=== PATIENT | female | born 1960 | race Two or more races ===

== ENCOUNTER 2024-06-08 16:40 | Emergency (ER) | payer MEDICAID, SELFPAY ==
[2024-06-08 17:16] VITALS: BP 131/81; PULSE 86; RESP 18; TEMP 36.9; O2SAT 99; BMI 35.1
--- NOTE | 2024-06-08 17:26 | XR_ITS ---
Examination: PA lateral chest 2 views Technique: Upright PA lateral chest 2 views Exam date and time: June 08, 2024 1736 hrs. Comparison September 26, 2022 Indications: Chest pain radiating to the right arm beginning 3 days ago. Findings: Mild prominence left ventricle Mild vascular congestion Benign lobulation right hemidiaphragm. No lobar pneumonia or pulmonary edema Impression: Mild prominence left ventricle Mild vascular congestion
--- NOTE | 2024-06-08 17:27 | EKG_ITS ---
[facility] Test Date: 2024-06-08 Pat Name: PERLA REAVES Department: Room: - Gender: Female Medical Transcription Supervisor: : [id number] Requested By: Brayan Gillette Order Number: [id number] Reading MD: Brayan Gillette Measurements Intervals [place] Rate: 70 P: 52 MD: 169 QRS: 0 QRSD: 114 T: 30 QT: 395 QTc: 426 Interpretive Statements SINUS RHYTHM INCOMPLETE RIGHT BUNDLE BRANCH BLOCK [90+ ms QRS DURATION, TERMINAL R IN V1/V2, 40+ ms S IN I/aVL/V4/V5/V6] Compared to ECG 09/26/2022 10:57:34 Myocardial infarct finding no longer present /store/S0/[id number]/ecg/[id number].pdf
--- NOTE | 2024-06-08 17:28 | PD.EDRME ---
Rapid Medical Screening Exam E Arrival date/time: 06/08/24 16:40 64-year-old female with no known medical history presents to the emergency room with a chief complaint of chest discomfort, right arm tingling, and pain x 3 days. I have greeted and performed a focused initial assessment of this patient. A comprehensive ED assessment and evaluation of the patient, analysis of all test results, and completion of the medical decision making process will be conducted by additional ED providers. Chief Complaint: Neck Pain/Injury Vital signs: Vital Signs Temperature 98.5 F 06/08/24 17:16 Pulse Rate 86 06/08/24 17:16 Respiratory Rate 18 06/08/24 17:16 Blood Pressure 131/81 H 06/08/24 17:16 Pulse Oximetry (%) 99 06/08/24 17:16 Oxygen Delivery Method Room Air 06/08/24 17:16 Vital signs reviewed by provider: Yes
[2024-06-08 18:40] LABS: B-Type Natriuretic Peptide < 20 pg/mL (0-100)
[2024-06-08 18:48] LABS: Basophils # (Auto) 0.1 Thou/mm3 (0.0-0.2); Basophils % (Auto) 1 % (0-2.5); Eosinophils # (Auto) 0.3 Thou/mm3 (0.0-0.5); Eosinophils % (Auto) 3 % (0-10); Hematocrit 33.3 % (36.0-46.0); Hemoglobin 9.9 g/dL (12.0-16.0); Immature Granulocytes % (Auto) 0 % (0-0); Immature Granulocytes Auto 0.03 Thou/mm3 (0.00-0.00); Lymphocytes # (Auto) 3.2 Thou/mm3 (1.0-4.8); Lymphocytes % (Auto) 36 % (10-50); Mean Corpuscular HGB Conc 29.7 g/dl (31.0-37.0); Mean Corpuscular Hemoglobin 21.7 pg (25.0-35.0); Mean Corpuscular Volume 73 fL (80-100); Monocytes # (Auto) 0.6 Thou/mm3 (0.0-0.8); Monocytes % (Auto) 7 % (0-12); Neutrophils # (Auto) 4.8 Thou/mm3 (1.8-7.7); Neutrophils % (Auto) 54 % (37-80); Nucleated Red Blood Cell % 0 /100 WBC (0); Platelet Count 444 Thou/mm3 (140-440); RDW Standard Deviation 51.8 fL (36.4-46.3); Red Blood Count 4.56 Miln/mm3 (4.00-5.20)
[2024-06-08 18:53] LABS: Alanine Aminotransferase 13 U/L (10-49); Albumin, Serum 4.5 gm/dL (3.4-4.8); Albumin/Globulin Ratio 1.8 (1.2-2.2); Alkaline Phosphatase 155 U/L (46-116); Anion Gap 10 (7-16); Aspartate Amino Transferase 16 U/L (0-34); BUN/Creatinine Ratio 24 Ratio (12-20); Bilirubin,Total 0.2 mg/dL (0.3-1.2); Blood Urea Nitrogen 22 mg/dL (9-23); Calcium 9.2 mg/dL (8.3-10.6); Calcium (Corrected) 9.2 mg/dL (8.5-10.1); Carbon Dioxide 21.8 mMol/L (20.0-31.0); Chloride 107 mMol/L (98-107); Creatinine (Component) 0.9 mg/dL (0.6-1.3); Estimated Creatinine Clearance 82.6 mL/min (>60); Globulin 2.5 gm/dL (2.3-3.5); Glucose 114 mg/dL (74-106); Magnesium 2.1 mg/dL (1.6-2.6); Osmolality,Calculated 281 (275-295); Potassium 3.7 mMol/L (3.4-5.1); Sodium 139 mMol/L (136-145); Troponin I < 0.020 ng/mL (0.0-0.045); eGFR > 60 See Note
[2024-06-08 19:37] VITALS: BP 175/70; PULSE 75; RESP 18; TEMP 36.7; O2SAT 97
--- NOTE | 2024-06-08 21:03 | PD.EDNECK ---
ED Neck Injury Pain RME/HPI General Chief Complaint: Neck Pain/Injury Stated Complaint: Pain in the neck that radiates down right arm Time Seen by Provider: 06/08/24 17:29 Arrival date/time: 06/08/24 16:40 RME / HPI RME / HPI Narrative: 06/08/24 16:40 64-year-old female with no known medical history presents to the emergency room with a chief complaint of chest discomfort, right arm tingling, and pain x 3 days. I have greeted and performed a focused initial assessment of this patient. A comprehensive ED assessment and evaluation of the patient, analysis of all test results, and completion of the medical decision making process will be conducted by additional ED providers. Dr. Peralta?s Main ED Evaluation: 64yo female with a history of HTN, anxiety presents to the ED for a chief complaint of right neck pain that radiates down her arm x 3 days. She denies any numbness or tingling. Her pain does not worsen with movement, but does on palpation. She states she started having mid chest pain today and was concerned, so she came in for evaluation. She denies any shortness of breath or any other associated symptoms. Related Data Home Medications ?Medication ?Instructions ?Recorded ?Confirmed lisinopril 10 mg tablet 10 mg PO QDAY #0 tabs 05/06/15 10/30/18 lorazepam 1 mg tablet 1 mg PO Q4H PRN Anxiety 09/17/17 10/30/18 Previous Rx's ?Medication ?Instructions ?Recorded albuterol sulfate 90 mcg/actuation 2 puff inhalation QID #18 grams 06/19/19 aerosol inhaler ibuprofen 600 mg tablet 600 mg PO Q6H PRN pain #30 tabs 09/26/22 ibuprofen 600 mg tablet 600 mg PO Q6H PRN pain #20 tabs 06/08/24 Allergies Allergy/AdvReac Type Severity Reaction Status Date / Time hydrocodone (From Vicodin) Allergy SEVERE Verified 06/19/19 12:23 ITCHING, BLURRY VISION Review of Systems Review of Systems Systems Reviewed: All systems reviewed, normal except as documented Past Medical History Past Medical History NEUROLOGIC: Negative Neurological Disorders, Seizures or Amyotrophic Lateral Sclerosis (ALS/Amber Gehrig's) CARDIAC: Positive Cardiac Disorders, Heart Murmur (CONGENITAL. ASYMPTOMATIC) and Hypertension (TAKES MED); Negative Congestive Heart Failure RESPIRATORY: Negative Chronic Obstructive Pulmonary Disease (COPD) GASTROINTESTINAL: Negative Gastrointestinal Disorders, Hepatitis or Colorectal Cancer GENITOURINARY: Negative Genitourinary Disorders or Renal Disease REPRODUCTIVE: Positive Previous Pregnancies (X4); Negative Breast Cancer, Endometriosis, Pelvic Inflammatory Disease or Uterine Prolapse MUSCULOSKELETAL: Positive Musculoskeletal Disorders, Arthritis, Osteoporosis, Carpal Tunnel Syndrome (MEJIA) and Fractures ( A CHILD-LEFT ARM); Negative Bone Cancer ENDOCRINE: Negative Endocrine Disorders, Diabetes Mellitus Type 1 or Diabetes Mellitus Type 2 HEMATOLOGIC: Negative Blood Disorders PSYCHO/SOCIAL: Positive Depression and Anxiety OTHER HISTORY: Positive Chicken Pox and Measles; Negative Autoimmune Disease, Blood Transfusions, Blood Transfusion Reaction, Anesthesia Reactions, Organ Transplant, Chemotherapy, Radiation Therapy, Hyperbaric Therapy, MRSA, VRSA, Vancomycin-Resistant Enterococci, Breast Cancer, Cervical Cancer, Colorectal Cancer, Lung Cancer or Ovarian Cancer Family History FAMILY HISTORY: Positive Family Psychiatric Problems (MOTHER), Family Cardiac Disorders (MOTHER) and Family Surgery (MOTHER,BROTHER); Negative Family Respiratory Disorders, Family Gastrointestinal Problems, Family Cancer or Family Anesthesia Reaction Surgical History SURGICAL: Positive Abdominal Surgery, Gastric Bypass Surgery, Joint Replacement (LEFT KNEE 08/2017), Hysterectomy (MEJIA MOISE), Tubal Ligation and Section (X1); Negative Cardiac Surgery, Endocrine Surgery, Ear Surgery, Nephrectomy, Neurologic Surgery, Brain Shunt or Organ Transplant Social History SMOKING STATUS: Never smoker SUBSTANCE USE: does not use ED Exam Narrative Physical exam: GENERAL APPEARANCE: alert and oriented x 4, well-developed, well-nourished, tenderness over the left trapezius muscle, no acute distress VITALS: All vitals were reviewed and the pulse ox is 97% on room air, which is normal according to my interpretation. HEENT: Normocephalic, atraumatic; pupils equal, round, reactive to light; EOMI; mucous membranes pink, moist; oropharynx clear NECK: Supple LUNGS: CTABL; no wheezes, no rales, no rhonchi HEART: Regular rate, regular rhythm; normal S1, S2; no murmurs ABDOMEN: non distended; normal BS; soft, no tenderness, no guarding, no rebound; no masses, no organomegaly, no hernia BACK: no CVA tenderness EXTREMITIES: atraumatic; no edema NEUROLOGIC: awake; alert and oriented x4; cranial nerves II-XII grossly intact; no focal sensory or motor deficits PSYCHIATRIC: appropriate mood and affect SKIN: warm, dry, normal color; no rashes Course Course Course Narrative: CXR is ordered for determining the etiology of chest pain. Quality Measures none Orders Category Date Time Status EKG (ED ONLY) *Do not use* NOW Care 06/08/24 17:27 Completed EKG (ED Only) Stat Exams 06/08/24 17:27 Ordered XR chest 2V Stat Exams 06/08/24 17:26 Completed B-Type Natriuretic Peptide Stat Lab 06/08/24 18:03 Completed CBC Stat Lab 06/08/24 18:03 Completed Comprehensive Metabolic Panel Stat Lab 06/08/24 18:03 Completed Magnesium Stat Lab 06/08/24 18:03 Completed Troponin I Stat Lab 06/08/24 18:03 Completed Vital Signs Vital signs: Vital Signs Temperature 98.5 F 06/08/24 17:16 Pulse Rate 86 06/08/24 17:16 Respiratory Rate 18 06/08/24 17:16 Blood Pressure 131/81 H 06/08/24 17:16 Pulse Oximetry (%) 99 06/08/24 17:16 Oxygen Delivery Method Room Air 06/08/24 17:16 Neck Pain MDM Narrative MDM Narrative:: Scribe Attestation: 06/08/24 Lena Bonilla am scribing for and in the presence of Dr. Peralta. Patient data External records reviewed:: [facility] previous records (Per chart review, patient was seen here on 09/26/22 for anxiety.) Clinical information provided by:: patient Social determinants that could affect healthcare access:: mental health Patient has the following chronic illnesses:: HTN, anxiety How is presenting disease/condition affected by chronic disease/condition?: uneffected by Evaluation data The following diagnostics were reviewed and interpreted by me:: lab results and radiology exam(s) Lab and/or radiology exams considered but not ordered:: none Interpretation Summary: WBC count is normal, HnH is at baseline, CMP is normal, BNP is normal, troponin is normal, according to my interpretation. ------- [facility] Report Signed Patient: PERLA REAVES. Record#: [id number] Birthdate: 1960 Age/Sex: 64 / F Location: [facility] Attending Dr: Ordering Physician: Brayan Crabtree Date of Service: 06/08/24 Procedure(s): XR chest 2V Accession Number(s): [id number] cc: Brayan Crabtree; Lamine Lenz MD~ Examination: PA lateral chest 2 views Technique: Upright PA lateral chest 2 views Exam date and time: June 08, 2024 1736 hrs. Comparison September 26, 2022 Indications: Chest pain radiating to the right arm beginning 3 days ago. Findings: Mild prominence left ventricle Mild vascular congestion Benign lobulation right hemidiaphragm. No lobar pneumonia or pulmonary edema Impression: Mild prominence left ventricle Mild vascular congestion Dictated By: Lamine Lenz MD Signed By: <Electronically signed by Lamine Lenz MD in OV> 06/08/24 1747 Medications / Prescriptions Medications or Prescriptions considered but not ordered:: none Medication administrations:: see above Consultations Consultation(s) initiated? (list below): No Diagnosis Neck Differential Diagnosis: other (cervical radiculopathy, shingles, muscle strain, fx) Most likely diagnosis given after review of the tests above:: see below Admission Indicated Admission indicated?: not indicated Admission Request Was there a request for admission?: No Disposition Plan Disposition Plan: Discharge Discharge Attestation Discharge Attestation: The patient and all family members were given an opportunity to ask questions and understood the discharge instructions. Discharge instructions specifically effects, indications for sooner follow up or return to the emergency department, and the expected course of current diagnosis. Patient condition: Stable Discharge Plan Plan Patient Disposition: HOME (Self Care) Prescriptions/Referrals Prescriptions/Med Rec: New ibuprofen 600 mg tablet 600 mg PO Q6H PRN (Reason: pain) Qty: 20 0RF No Action lisinopril 10 MG tablet 10 mg PO QDAY Qty: 0 lorazepam 1 mg Tablet 1 mg PO Q4H PRN (Reason: Anxiety) albuterol sulfate 90 mcg/actuation HFA aerosol inhaler 2 puff INH QID Qty: 18 0RF ibuprofen 600 mg tablet 600 mg PO Q6H PRN (Reason: pain) Qty: 30 0RF Referrals: Haroldo Green MD [Primary Care Provider] - In 1 week Problem List Clinical Impression: Muscle strain Patient/Caregiver Discharge Instructions Discharge Activity: activity as tolerated Education Materials: ED Myalgias Additional Instructions: Return to the emergency department for any worsening or any further medical problems Otherwise you should follow-up with your primary care doctor within the next several days Print Language: Danish Stand Alone Forms: [facility] Info., Patient Portal Info Letter
== END 2024-06-08 22:20 | disposition home or self-care (01) ==
PROVIDERS: Nurse Practitioner Family; Emergency Provider Emergency Medicine; PCP Family Medicine
DX: S29.011A Strain of muscle and tendon of front wall of thorax, initial encounter (principal); I10 Essential (primary) hypertension; R09.89 Other specified symptoms and signs involving the circulatory and respiratory systems; F41.9 Anxiety disorder, unspecified; Z79.899 Other long term (current) drug therapy; X58.XXXA Exposure to other specified factors, initial encounter
CPT/HCPCS: 36415; 71046; 80053; 83735; 83880; 84484; 85025; 93005; 99283

== ENCOUNTER 2024-12-14 08:53 | Outpatient (AMB) | payer MEDICAID, SELFPAY ==
--- NOTE | 2024-12-14 08:58 | ORTHONT_ITS ---
Vital signs 12/14/24 09:06 Height 1.63 m Height Method Measured Weight 96.332 kg Weight Measurement Method Standing Scale BMI 36.4 BP 166/93 H Blood Pressure Source Automatic Cuff Blood Pressure Location Left Upper Arm Position Sitting Respiration 18 Pulse 86 Pulse Source Monitor Temp 97.6 F Temp Source Temporal Artery Scan Pulse Oximetry (%) 91 L Oxygen Delivery Method Room Air Med/Allergies Allergies & Medications Allergies hydrocodone (From Vicodin) Allergy (Verified 12/14/24 09:07) SEVERE ITCHING, BLURRY VISION Medication Reconciliation lisinopril 10 mg tablet 10 mg PO QDAY #0 tabs 05/06/15 [History Confirmed 12/14/24] lorazepam 1 mg tablet 1 mg PO Q4H PRN Anxiety 09/17/17 [History Confirmed 12/14/24] albuterol sulfate 90 mcg/actuation aerosol inhaler 2 puff inhalation QID #18 grams 06/19/19 [Rx Confirmed 12/14/24] ibuprofen 600 mg tablet 600 mg PO Q6H PRN pain #30 tabs 09/26/22 [Rx Confirmed 12/14/24] ibuprofen 600 mg tablet 600 mg PO Q6H PRN pain #20 tabs 06/08/24 [Rx Confirmed 12/14/24] Exam Exam Breathing is nonlabored. Patient has a normal mood and affect. Bilateral extremities were evaluated and demonstrates sensation intact to light touch. Palpable pedal pulses are present. No significant edema is present. Bilateral hips were examined. The patient has no pain with log roll of the hips. Internal rotation to 30 degrees and external rotation to 30 degrees is painless. Negative FADIR. Left knee was examined today. Left knee incision is clean dry and intact The right knee was also examined. The right knee is in varus alignment. Range of motion from 0-115 degrees. Knee is stable to varus and valgus as well as AP translation with <5mm. Patient has a negative McMurrays. There is no pain with patellofemoral compression and no crepitus noted. The knee is tender to palpation medially. Assessment and Plan Problem List (1) Pain in right knee: Status: Acute Plan: Patient is a pleasant 64-year-old female with right knee pain and right knee arthritis. We discussed different treatment options. She has [id number] arthritis and has had over 10 injections and anti-inflammatories in the past. We will get x-rays and discusse different treatment options. We discussed total knee replacement in great detail given the old x-rays show [id number] arthritis. Office Procedures GNS Level of Care Nursing/Assessment Patient Status: Initial/New Patient Nursing Assessment/Reassesment: Medication Reconciliation, Orthostatic Vitals and Update PMH in EMR Coordination of Care: Complex Care and Chronic Disease 1-5, Education Complex Pt/Fam, Consent,records obtained, informed consent, Lab and Imaging orders, Results/Orders obtained and Staff clarify orders New Patient Charge New Patient Point Assignment: 1104 New Patient Point Charge: REGISTERED NURSE STEP DOWN Level 3 (4851-0920) MA Intake Visit Data Collection New Patient or Established: New Patient (never been to [facility]) Reason for Visit:: RIGHT KNEE OSTEOARTHRITIS Seen by Clinical Staff ONLY (RN/MA): No Chainstitch Seat Joiner Required: No PCP or OBGYN visit in last 3 months: Yes Hx Now: No Do You Feel Safe at Home: Yes Authorities Contacted: N/A Questionairres Past Medical History Past Medical History Have you ever been diagnosed with any of the following: Neurological Problems Seizures: No Amyotrophic Lateral Sclerosis (ALS/Amber Gehrig's): No Cardiology Problems Heart Murmur: Yes (CONGENITAL. ASYMPTOMATIC) Congestive Heart Failure: No Hypertension: Yes (TAKES MED) Respiratory Problems Chronic Obstructive Pulmonary Disease (COPD): No Smoking: No Smoking Cessation Counseling: No Smoking Exposure: No Stomache/Intestinal Problems Hepatitis: No Colorectal Cancer: No Genital/Urinary Problems Renal Disease: No Reproductive Problems Breast Cancer: No Endometriosis: No Pelvic Inflammatory Disease: No Previous Pregnancies: Yes (X4) Uterine Prolapse: No Musculoskeletal Problems Bone Cancer: No Arthritis: Yes Osteoporosis: Yes Carpal Tunnel Syndrome: Yes (MEJIA) Fractures: Yes ( A CHILD-LEFT ARM) Endocrine Problems Diabetes Mellitus Type 1: No Diabetes Mellitus Type 2: No Psychologic Problems Depression: Yes Anxiety: Yes Other Problems Blood Transfusions: No Blood Transfusion Reaction: No Anesthesia Reactions: No Organ Transplant: No Chemotherapy: No Radiation Therapy: No Hyperbaric Therapy: No MRSA: No VRSA: No Vancomycin-Resistant Enterococci: No Chicken Pox: Yes Measles: Yes Cervical Cancer: No Lung Cancer: No Ovarian Cancer: No Surgical History Hysterectomy: Yes (MEJIA MOISE) Subjective Visit Visit for: new patient and knee Immunization / Flu Flu Vaccine in the Last 12 Months: Yes Flu Vaccine Exclusion Criteria: Already Received History of Present Illness Chief complaint: RIGHT KNEE OSTEOARTHRITIS Date of injury / onset of symptoms: 5 YEARS AGO Patient is a pleasant 64-year-old female with over 6 years of right knee pain. She had a left total knee replacement 6 years ago. Her right knee has been [id number] since the x-rays in 2019. She has no current x-rays. She has had over 10 injections in her right knee and has tried ibuprofen. She has lost a significant amount of weight as well Personal History Occupation: RETIRED Red flag PMH: none BMI Counceling provided: Yes Pain Pain level (0-10): 7 Pain location: anterior Pain quality: sharp Pain timing: night, increases with activity and stairs Associated signs & symptoms: numbness, weakness and stiffness Ambulatory data Ambulatory device: none Treatments Number of previous injections: 10 Improvement with previous injections: Yes Number of Physical Therapy sessions: 0 Improvement with PT: No Improvement with NSAIDS: yes Review of Systems Review of Systems: All systems negative unless otherwise noted in HPI.
[2024-12-14 09:06] VITALS: BP 166/93; PULSE 86; RESP 18; TEMP 36.4; O2SAT 91; BMI 36.4
--- NOTE | 2024-12-14 09:16 | XR_ITS ---
Examination: Bilateral knees 2 views Right lateral knee left lateral knee 2 views Bilateral axial knees single view TECHNIQUE: Bilateral AP knees standing single view, bilateral PA knees standing single view flexion Standing right lateral knee left lateral knee 2 views Bilateral axial knees single view total 5 views Date and time: December 14, 2024 0931 hours INDICATIONS: Right knee pain 5 years FINDINGS: Moderate osteopenia Severe narrowing, [id number] medial joint space right knee Moderate to advanced osteoarthritis right patellofemoral joint Total left knee arthroplasty with satisfactory alignment IMPRESSION: Severe narrowing, [id number], medial joint space right knee
== END 2024-12-14 09:23 | disposition home or self-care (01) ==
LOC: HODSRG 08:53
PROVIDERS: PCP Physician Assistant; Referring Provider Physician Assistant; Supervising Provider Orthopaedic Surgery Adult Reconstructive Orthopaedic Surgery; Visit Provider Orthopaedic Surgery Adult Reconstructive Orthopaedic Surgery
DX: M25.561 Pain in right knee (principal); M17.11 Unilateral primary osteoarthritis, right knee; I10 Essential (primary) hypertension
CPT/HCPCS: 73564; 99203; G0463

== ENCOUNTER 2025-01-11 08:30 | Outpatient (AMB) | payer MEDICARE, MEDICAID, SELFPAY ==
--- NOTE | 2025-01-11 08:46 | ORTHONT_ITS ---
Vital signs 01/11/25 08:48 Height 1.63 m Height Method Measured Weight 97.211 kg Weight Measurement Method Standing Scale BMI 36.6 BP 129/80 Blood Pressure Source Automatic Cuff Blood Pressure Location Left Upper Arm Position Sitting Respiration 18 Pulse 72 Pulse Source Monitor Temp 98.2 F Temp Source Temporal Artery Scan Pulse Oximetry (%) 90 L Oxygen Delivery Method Room Air Med/Allergies Allergies & Medications Allergies hydrocodone (From Vicodin) Allergy (Verified 01/11/25 08:49) SEVERE ITCHING, BLURRY VISION Medication Reconciliation lisinopril 10 mg tablet 10 mg PO QDAY #0 tabs 05/06/15 [History Confirmed 01/11/25] lorazepam 1 mg tablet 1 mg PO Q4H PRN Anxiety 09/17/17 [History Confirmed 01/11/25] albuterol sulfate 90 mcg/actuation aerosol inhaler 2 puff inhalation QID #18 grams 06/19/19 [Rx Confirmed 01/11/25] ibuprofen 600 mg tablet 600 mg PO Q6H PRN pain #30 tabs 09/26/22 [Rx Confirmed 01/11/25] ibuprofen 600 mg tablet 600 mg PO Q6H PRN pain #20 tabs 06/08/24 [Rx Confirmed 01/11/25] Exam Exam Breathing is nonlabored. Patient has a normal mood and affect. Bilateral extremities were evaluated and demonstrates sensation intact to light touch. Palpable pedal pulses are present. No significant edema is present. Bilateral hips were examined. The patient has no pain with log roll of the hips. Internal rotation to 30 degrees and external rotation to 30 degrees is painless. Negative FADIR. Left knee was examined today. Left knee incision is clean dry and intact The right knee was also examined. The right knee is in varus alignment. Range of motion from 0-115 degrees. Knee is stable to varus and valgus as well as AP translation with <5mm. Patient has a negative McMurrays. There is no pain with patellofemoral compression and no crepitus noted. The knee is tender to palpation medially. Right knee x-rays demonstrates significant joint space narrowing medially with complete obliteration of the medial joint space Assessment and Plan Problem List (1) Pain in right knee: Status: Acute Plan: Patient is a pleasant 64-year-old female with right knee pain and right knee arthritis. We discussed different treatment options. She has yjen-jk-[id number] arthritis and has had over 10 injections and anti-inflammatories in the past. The pain is affecting her quality life and happiness we discussed total knee replacement is a reasonable option The nature and purpose of the total knee replacement, alternative method(s) of treatment, the material risks involved, and the possibility of complications were fully explained to the patient. The patient does NOT have any of the following contraindications to TKA: - Active infection of the knee joint, OR - Active systemic bacteremia, OR - Active skin infection or open wound at surgical site, OR - Neuropathic arthritis, OR - Severe, rapidly progressive neurological disease, OR - Severe medical condition that makes risks of surgery outweigh the potential benefit The patient was told the most common risks and complications associated with a total knee replacement include, but are not limited to: blood clots in the leg, fatal pulmonary embolism, dislocation of the prosthesis, intraoperative and postoperative fractures of the femur or tibia, infection, failure of the prosthesis or grafting materials, complications from anesthesia, reactions to blood transfusions, postoperative leg length inequality, instability of the knee replacement, nerve damage or injury, vascular injury, delayed wound healing, infection, other injury or even . In addition, there are risks associated with anesthesia given during this operation. Also, the patient was told that after undergoing a total knee replacement there may still be persistent pain or disability. The patient was informed that the success of this operation in part depends upon the mechanical devices which are going to be implanted and that these devices can fail or malfunction, and may need to be repaired or replaced and there are no guarantees as to the longevity of this device or its parts and that it or its parts could fail prematurely. The patient was also notified that during the course of surgery, there may be a need to use bone graft from donors, and that any bone graft used will be carefully screened for communicable diseases, including AIDS, hepatitis, Gerardo-Creutzfeldt, or other diseases, but despite the screening procedures, there is a small chance that they could contract one of these diseases. Finally, the patient was asked to follow completely and fully with all advice and recommended treatments, and that recovery and ultimate outcome are affected by their compliance with recommended treatment. We discussed the risks, benefits and treatment alternatives, and the patient is interested in proceeding with surgery. We will try to set this up as expeditiously as possible. Office Procedures GNS Level of Care Nursing/Assessment Patient Status: Established Patient Nursing Assessment/Reassesment: Medication Reconciliation, Orthostatic Vitals, Update PMH in EMR and Vital Signs Coordination of Care: Complex Care and Chronic Disease 1-5, Education Complex Pt/Fam, Consent,records obtained, informed consent, Results/Orders obtained and Staff clarify orders Established Patient Charge Established Patient Point Assignment: 105 Established Patient Point Charge: EP Level 3 (80-115) MA Intake Visit Data Collection New Patient or Established: Established Patient (seen at [facility] within 3 years) Reason for Visit:: 3 WEEK F/U IMAGING RESULTS Seen by Clinical Staff ONLY (RN/MA): No Nuclear Auxiliary Operator Required: No PCP or OBGYN visit in last 3 months: Yes Hx Now: No Do You Feel Safe at Home: Yes Authorities Contacted: N/A Questionairres Past Medical History Past Medical History Have you ever been diagnosed with any of the following: Neurological Problems Seizures: No Amyotrophic Lateral Sclerosis (ALS/Amber Gehrig's): No Cardiology Problems Heart Murmur: Yes (CONGENITAL. ASYMPTOMATIC) Congestive Heart Failure: No Hypertension: Yes (TAKES MED) Respiratory Problems Chronic Obstructive Pulmonary Disease (COPD): No Smoking: No Smoking Cessation Counseling: No Smoking Exposure: No Stomache/Intestinal Problems Hepatitis: No Colorectal Cancer: No Genital/Urinary Problems Renal Disease: No Reproductive Problems Breast Cancer: No Endometriosis: No Pelvic Inflammatory Disease: No Previous Pregnancies: Yes (X4) Uterine Prolapse: No Musculoskeletal Problems Bone Cancer: No Arthritis: Yes Osteoporosis: Yes Carpal Tunnel Syndrome: Yes (MEJIA) Fractures: Yes ( A CHILD-LEFT ARM) Endocrine Problems Diabetes Mellitus Type 1: No Diabetes Mellitus Type 2: No Psychologic Problems Depression: Yes Anxiety: Yes Other Problems Blood Transfusions: No Blood Transfusion Reaction: No Anesthesia Reactions: No Organ Transplant: No Chemotherapy: No Radiation Therapy: No Hyperbaric Therapy: No MRSA: No VRSA: No Vancomycin-Resistant Enterococci: No Chicken Pox: Yes Measles: Yes Cervical Cancer: No Lung Cancer: No Ovarian Cancer: No Surgical History Hysterectomy: Yes (MEJIA MOISE) Subjective Visit Visit for: follow up visit and knee Immunization / Flu Flu Vaccine in the Last 12 Months: Yes Flu Vaccine Exclusion Criteria: Already Received History of Present Illness Chief complaint: 3 WEEK F/U IMAGING RESULTS Date of injury / onset of symptoms: 5 YEARS AGO Patient is a pleasant 64-year-old female with over 6 years of right knee pain. She had a left total knee replacement 6 years ago. Her right knee has been [id number] since the x-rays in 2019. She has had over 10 injections in her right knee and has tried ibuprofen. She has lost a significant amount of weight as well Personal History Occupation: RETIRED Red flag PMH: none BMI Counceling provided: Yes Pain Pain level (0-10): 7 Pain location: anterior Pain quality: sharp Pain timing: night, increases with activity and stairs Associated signs & symptoms: numbness, weakness and stiffness Ambulatory data Ambulatory device: none Treatments Number of previous injections: 10 Improvement with previous injections: Yes Number of Physical Therapy sessions: 0 Improvement with PT: No Improvement with NSAIDS: yes Review of Systems Review of Systems: All systems negative unless otherwise noted in HPI.
[2025-01-11 08:48] VITALS: BP 129/80; PULSE 72; RESP 18; TEMP 36.8; O2SAT 90; BMI 36.6
== END 2025-01-11 09:04 | disposition home or self-care (01) ==
PROVIDERS: PCP Physician Assistant; Referring Provider Physician Assistant; Supervising Provider Orthopaedic Surgery Adult Reconstructive Orthopaedic Surgery; Visit Provider Orthopaedic Surgery Adult Reconstructive Orthopaedic Surgery
DX: M25.561 Pain in right knee (principal); M17.11 Unilateral primary osteoarthritis, right knee; I10 Essential (primary) hypertension; Z96.652 Presence of left artificial knee joint
CPT/HCPCS: 99213; G0463

== ENCOUNTER 2025-02-01 14:48 | Outpatient (AMB) | payer MEDICARE, MEDICAID, SELFPAY ==
--- NOTE | 2025-02-01 15:00 | PD.ORTHCLVIS ---
Vital signs 02/01/25 15:01 Height 1.63 m Height Method Stated Weight 98.231 kg Weight Measurement Method Standing Scale BMI 36.9 BP 151/78 H Blood Pressure Source Automatic Cuff Blood Pressure Location Left Upper Arm Position Sitting Respiration 20 Pulse 82 Pulse Source Monitor Temp 97.9 F Temp Source Temporal Artery Scan Pulse Oximetry (%) 90 L Oxygen Delivery Method Room Air Med/Allergies Allergies & Medications Allergies hydrocodone (From Vicodin) Allergy (Verified 02/01/25 15:00) SEVERE ITCHING, BLURRY VISION Medication Reconciliation lisinopril 10 mg tablet 10 mg PO QDAY #0 tabs 05/06/15 [History Confirmed 02/01/25] lorazepam 1 mg tablet 1 mg PO Q4H PRN Anxiety 09/17/17 [History Confirmed 02/01/25] albuterol sulfate 90 mcg/actuation aerosol inhaler 2 puff inhalation QID #18 grams 06/19/19 [Rx Confirmed 02/01/25] ibuprofen 600 mg tablet 600 mg PO Q6H PRN pain #30 tabs 09/26/22 [Rx Confirmed 02/01/25] ibuprofen 600 mg tablet 600 mg PO Q6H PRN pain #20 tabs 06/08/24 [Rx Confirmed 02/01/25] Exam Exam Breathing is nonlabored. Patient has a normal mood and affect. Bilateral extremities were evaluated and demonstrates sensation intact to light touch. Palpable pedal pulses are present. No significant edema is present. Bilateral hips were examined. The patient has no pain with log roll of the hips. Internal rotation to 30 degrees and external rotation to 30 degrees is painless. Negative FADIR. Left knee was examined today. Left knee incision is clean dry and intact The right knee was also examined. The right knee is in varus alignment. Range of motion from 0-115 degrees. Knee is stable to varus and valgus as well as AP translation with <5mm. Patient has a negative McMurrays. There is no pain with patellofemoral compression and no crepitus noted. The knee is tender to palpation medially. Right knee x-rays demonstrates significant joint space narrowing medially with complete obliteration of the medial joint space Assessment and Plan Problem List (1) Pain in right knee: Status: Acute Plan: Patient is a pleasant 64-year-old female with right knee pain and right knee arthritis. We discussed different treatment options. She has [id number]-[id number] arthritis and has had over 10 injections and anti-inflammatories in the past. The pain is affecting her quality life and happiness we discussed total knee replacement is a reasonable option The nature and purpose of the total knee replacement, alternative method(s) of treatment, the material risks involved, and the possibility of complications were fully explained to the patient. The patient does NOT have any of the following contraindications to TKA: - Active infection of the knee joint, OR - Active systemic bacteremia, OR - Active skin infection or open wound at surgical site, OR - Neuropathic arthritis, OR - Severe, rapidly progressive neurological disease, OR - Severe medical condition that makes risks of surgery outweigh the potential benefit The patient was told the most common risks and complications associated with a total knee replacement include, but are not limited to: blood clots in the leg, fatal pulmonary embolism, dislocation of the prosthesis, intraoperative and postoperative fractures of the femur or tibia, infection, failure of the prosthesis or grafting materials, complications from anesthesia, reactions to blood transfusions, postoperative leg length inequality, instability of the knee replacement, nerve damage or injury, vascular injury, delayed wound healing, infection, other injury or even . In addition, there are risks associated with anesthesia given during this operation. Also, the patient was told that after undergoing a total knee replacement there may still be persistent pain or disability. The patient was informed that the success of this operation in part depends upon the mechanical devices which are going to be implanted and that these devices can fail or malfunction, and may need to be repaired or replaced and there are no guarantees as to the longevity of this device or its parts and that it or its parts could fail prematurely. The patient was also notified that during the course of surgery, there may be a need to use bone graft from donors, and that any bone graft used will be carefully screened for communicable diseases, including AIDS, hepatitis, Gerardo-Creutzfeldt, or other diseases, but despite the screening procedures, there is a small chance that they could contract one of these diseases. Finally, the patient was asked to follow completely and fully with all advice and recommended treatments, and that recovery and ultimate outcome are affected by their compliance with recommended treatment. We discussed the risks, benefits and treatment alternatives, and the patient is interested in proceeding with surgery. We will try to set this up as expeditiously as possible. (2) Arthritis of right knee: Status: Acute Advanced Care Planning Discussion Advance care planning discussed with:: patient Office Procedures GNS Level of Care Nursing/Assessment Patient Status: Established Patient Nursing Assessment/Reassesment: Medication Reconciliation, Update PMH in EMR and Vital Signs Coordination of Care: Complex Care and Chronic Disease 1-5, Education Complex Pt/Fam, Consent,records obtained, informed consent, Results/Orders obtained and Staff clarify orders Established Patient Charge Established Patient Point Assignment: 95 Established Patient Point Charge: EP Level 3 (80-115) MA Intake Visit Data Collection New Patient or Established: Established Patient (seen at [facility] within 3 years) Reason for Visit:: PRE OP R TKA Seen by Clinical Staff ONLY (RN/MA): No Landscape Specialist Required: No PCP or OBGYN visit in last 3 months: Yes Hx Now: No Do You Feel Safe at Home: Yes Authorities Contacted: N/A Questionairres Past Medical History Past Medical History Have you ever been diagnosed with any of the following: Neurological Problems Seizures: No Amyotrophic Lateral Sclerosis (ALS/Amber Gehrig's): No Cardiology Problems Heart Murmur: Yes (CONGENITAL. ASYMPTOMATIC) Congestive Heart Failure: No Hypertension: Yes (TAKES MED) Respiratory Problems Chronic Obstructive Pulmonary Disease (COPD): No Smoking: No Smoking Cessation Counseling: No Smoking Exposure: No Stomache/Intestinal Problems Hepatitis: No Colorectal Cancer: No Genital/Urinary Problems Renal Disease: No Reproductive Problems Breast Cancer: No Endometriosis: No Pelvic Inflammatory Disease: No Previous Pregnancies: Yes (X4) Uterine Prolapse: No Musculoskeletal Problems Bone Cancer: No Arthritis: Yes Osteoporosis: Yes Carpal Tunnel Syndrome: Yes (MEJIA) Fractures: Yes ( A CHILD-LEFT ARM) Endocrine Problems Diabetes Mellitus Type 1: No Diabetes Mellitus Type 2: No Psychologic Problems Depression: Yes Anxiety: Yes Other Problems Blood Transfusions: No Blood Transfusion Reaction: No Anesthesia Reactions: No Organ Transplant: No Chemotherapy: No Radiation Therapy: No Hyperbaric Therapy: No MRSA: No VRSA: No Vancomycin-Resistant Enterococci: No Chicken Pox: Yes Measles: Yes Cervical Cancer: No Lung Cancer: No Ovarian Cancer: No Surgical History Hysterectomy: Yes (MEJIA MOISE) Subjective Visit Visit for: follow up visit and knee Immunization / Flu Flu Vaccine in the Last 12 Months: Yes Flu Vaccine Exclusion Criteria: Already Received History of Present Illness Chief complaint: 3 WEEK F/U IMAGING RESULTS Date of injury / onset of symptoms: 5 YEARS AGO Patient is a pleasant 64-year-old female with over 6 years of right knee pain. She had a left total knee replacement 6 years ago. Her right knee has been [id number] since the x-rays in 2019. She has had over 10 injections in her right knee and has tried ibuprofen. She has lost a significant amount of weight as well Personal History Occupation: RETIRED Red flag PMH: none BMI Counceling provided: Yes Pain Pain level (0-10): 7 Pain location: anterior Pain quality: sharp Pain timing: night, increases with activity and stairs Associated signs & symptoms: numbness, weakness and stiffness Ambulatory data Ambulatory device: none Treatments Number of previous injections: 10 Improvement with previous injections: Yes Number of Physical Therapy sessions: 0 Improvement with PT: No Improvement with NSAIDS: yes Review of Systems Review of Systems: All systems negative unless otherwise noted in HPI.
[2025-02-01 15:01] VITALS: BP 151/78; PULSE 82; RESP 20; TEMP 36.6; O2SAT 90; BMI 36.9
== END 2025-02-01 15:30 | disposition home or self-care (01) ==
LOC: HODSRG 14:48
PROVIDERS: PCP Physician Assistant; Referring Provider Physician Assistant; Supervising Provider Orthopaedic Surgery Adult Reconstructive Orthopaedic Surgery; Visit Provider Orthopaedic Surgery Adult Reconstructive Orthopaedic Surgery
DX: M25.561 Pain in right knee (principal); Z96.652 Presence of left artificial knee joint; M17.11 Unilateral primary osteoarthritis, right knee
CPT/HCPCS: 99213; G0463

== ENCOUNTER → 2025-02-21 | Outpatient (CLI) | payer MEDICARE, MEDICAID, SELFPAY ==
--- NOTE | 2025-02-21 14:00 | XR_ITS ---
Examination: CT right lower extremity, without contrast. 2-D sagittal reconstructions. 2-D coronal reconstructions. 3-D reconstructions. Date and time of exam: February 21, 2025, 1359 hours INDICATIONS: Diagnosis primary unilateral osteoarthritis right knee, right knee pain 5 years CTDI: vol (mGy): 17.5 DLP: (mGycm): 1101 Technique: Multiple 1.25 mm axial sections of the right lower extremity without intravenous contrast have been obtained. 2-D sagittal and coronal reconstructions have been obtained. 3-D reconstructions have been obtained. Low dose protocols were performed. One or more of the following dose reduction techniques were used; automated exposure control, adjustment of the mA and/or KV according to patient size, use of iterative reconstruction technique. Findings: Moderate osteopenia Mild to moderate narrowing right hip joint No hip fracture Severe narrowing medial joint space right knee Significant osteoarthritis lateral patellofemoral joints No fracture IMPRESSION: Severe narrowing medial joint space right knee Significant osteoarthritis lateral and patellofemoral joints right knee
== END | disposition home or self-care (01) ==
LOC: CCTX 13:40
PROVIDERS: PCP Family Medicine; Referring Provider Orthopaedic Surgery Adult Reconstructive Orthopaedic Surgery; Visit Provider Orthopaedic Surgery Adult Reconstructive Orthopaedic Surgery
DX: M17.11 Unilateral primary osteoarthritis, right knee (principal); M25.861 Other specified joint disorders, right knee
CPT/HCPCS: 73700

== ENCOUNTER 2025-02-28 07:55 | Day surgery (SDC) | payer MEDICARE, MEDICAID, SELFPAY ==
--- NOTE | 2025-02-22 06:00 | EKG_ITS ---
[facility] Test Date: 2025-02-22 Pat Name: PERLA REAVES Department: Room: - Gender: Female Rubber Belt Splicer: ALVARADO : 1960 Requested By: Tj Landa Order Number: [id number] Reading MD: Tj Landa Measurements Intervals [place] Rate: 64 P: 58 NM: 175 QRS: 10 QRSD: 101 T: 46 QT: 411 QTc: 426 Interpretive Statements SINUS RHYTHM POSSIBLE LEFT ATRIAL ENLARGEMENT [-0.1mV P WAVE IN V1/V2] INCOMPLETE RIGHT BUNDLE BRANCH BLOCK [90+ ms QRS DURATION, TERMINAL R IN V1/V2, 40+ ms S IN I/aVL/V4/V5/V6] Compared to ECG 06/08/2024 17:34:07 No significant changes /store/S0/[id number]/ecg/[id number].pdf
[2025-02-22 07:23] VITALS: BMI 36.7
[2025-02-22 08:59] LABS: Basophils # (Auto) 0.1 Thou/mm3 (0.0-0.2); Basophils % (Auto) 1 % (0-2.5); Eosinophils # (Auto) 0.4 Thou/mm3 (0.0-0.5); Eosinophils % (Auto) 6 % (0-10); Hematocrit 34.5 % (36.0-46.0); Hemoglobin 10.1 g/dL (12.0-16.0); Immature Granulocytes Auto 0.01 Thou/mm3 (0.00-0.00); Lymphocytes # (Auto) 1.9 Thou/mm3 (1.0-4.8); Lymphocytes % (Auto) 33 % (10-50); Mean Corpuscular HGB Conc 29.3 g/dl (31.0-37.0); Mean Corpuscular Hemoglobin 21.6 pg (25.0-35.0); Mean Corpuscular Volume 74 fL (80-100); Monocytes # (Auto) 0.5 Thou/mm3 (0.0-0.8); Monocytes % (Auto) 8 % (0-12); Neutrophils # (Auto) 3.0 Thou/mm3 (1.8-7.7); Neutrophils % (Auto) 52 % (37-80); Nucleated Red Blood Cell # 0.00 Thou/mm3 (0.00-0.00); Nucleated Red Blood Cell % 0 /100 WBC (0); Platelet Count 430 Thou/mm3 (140-440); RDW Standard Deviation 45.6 fL (36.4-46.3); Red Blood Count 4.67 Miln/mm3 (4.00-5.20); White Blood Count 5.8 Thou/mm3 (3.6-11.0)
[2025-02-22 09:10] LABS: INR 1.0 (0.9-1.3); Partial Thromboplastin Time 27.3 Seconds (22.0-36.0); Prothrombin Time 10.4 Seconds (9.0-12.2)
[2025-02-22 09:14] LABS: Alanine Aminotransferase 13 U/L (10-49); Albumin, Serum 4.8 gm/dL (3.4-4.8); Albumin/Globulin Ratio 1.9 (1.2-2.2); Alkaline Phosphatase 145 U/L (46-116); Anion Gap 12 (7-16); Aspartate Amino Transferase 22 U/L (0-34); BUN/Creatinine Ratio 19 Ratio (12-20); Bilirubin,Total 0.3 mg/dL (0.3-1.2); Blood Urea Nitrogen 17 mg/dL (9-23); Calcium 9.2 mg/dL (8.3-10.6); Calcium (Corrected) 9.2 mg/dL (8.5-10.1); Carbon Dioxide 24.1 mMol/L (20.0-31.0); Chloride 107 mMol/L (98-107); Creatinine (Component) 0.9 mg/dL (0.6-1.3); Estimated Creatinine Clearance 70.5 mL/min (>60); Globulin 2.5 gm/dL (2.3-3.5); Glucose 107 mg/dL (74-106); Osmolality,Calculated 286 (275-295); Potassium 4.2 mMol/L (3.4-5.1); Sodium 143 mMol/L (136-145); Total Protein 7.3 gm/dL (5.7-8.2); eGFR > 60 See Note
[2025-02-22 09:19] LABS: COVID-19 Antigen (In-House) Negative (Negative)
[2025-02-28] VITALS (17 sets, daily range): BP systolic 106–159; BP diastolic 58–84; PULSE 68–82; RESP 14–20; TEMP 36.1–37.1; O2SAT 92–97; BMI 37.0
[2025-02-28] MEDS: MELOXICAM 7.5 MG TABLET PO (08:47)
[2025-02-28] MEDS: PREGABALIN 75 MG CAPSULE PO (08:48)
[2025-02-28] MEDS: ACETAMINOPHEN 325 MG TABLET 650 MG PO (08:48)
--- NOTE | 2025-02-28 09:43 | SUR.PHASEI ---
0943: Pt. wakes to name then drifts back to sleep, vitals stable, breathing unlabored, no signs of distress, no signs of nausea, dressing to right knee CDI, no active bleed noted, bilateral dorsalis pedis pulses strong and regular, cap refill to bilateral feet less than 3 seconds, pt. able to move bilateral legs, report received from Praveen JAQUEZ and Franchesca COLBERT.
--- NOTE | 2025-02-28 11:51 | SUR.PHASEI ---
pt received from OR in recovery bay 7. pt obtunded, breathing unlabored on oxymask 10l, oral and nasal airway in place. pt dressing to right lower extremity cdi. report received from Kirstie Beavers and Dr. Landa.
--- NOTE | 2025-02-28 12:15 | XR_ITS ---
EXAMINATION: Right knee 2 views TECHNIQUE: AP right knee 2 views Date and time: February 28, 2025, 1218 hours INDICATIONS: Postop right knee replacement today. FINDINGS: Total right knee arthroplasty. Satisfactory alignment. Moderate osteopenia IMPRESSION: Total right knee arthroplasty with satisfactory alignment
--- NOTE | 2025-02-28 12:27 | PD.SUROPNT ---
Date of Procedure 02/28/25 Pre Op Diagnosis right knee osteoarthritis Post Op Diagnosis right knee osteoarthritis Procedure right total knee replacement iris Findings full thickness cartilage loss and osteophytes Procedure Description Indication: The patient has a long history of right knee pain. X-rays show degenerative arthritis involving the knee. Over the past several years the patient has had increasing pain, progressive limitation in function. He has failed conservative measures including activity modification, physical therapy, injections, anti-inflammatories, and assistive devices. After a lengthy discussion of the risks and benefits, the patient presents now for total knee replacement. The nature and purpose of the total knee replacement, alternative method(s) of treatment, the material risks involved, and the possibility of complications were fully explained to the patient. The patient was told the most common risks and complications associated with a total knee replacement include, but are not limited to blood clots in the leg, fatal pulmonary embolism, dislocation of the prosthesis, intraoperative and postoperative fractures of the femur or tibia, infection, failure of the prosthesis or grafting materials, complications from anesthesia, reactions to blood transfusions, postoperative leg length inequality, instability of the knee replacement, nerve damage or injury, vascular injury, delayed wound healing, infections, other injury or even . In addition, there are risks associated with anesthesia given during this operation, temporary or permanent numbness on the skin lateral to the incision can be a complication unique to total knee surgery, and kneeling can be painful after knee replacement surgery. Also, the patient was told that after undergoing a total knee replacement there may still be pain or disability. We discussed with the patient that we will be using a robot-assisted technology. We discussed that there is a possibility of converting to manual instrumentation. The patient was informed that the success of this operation in part depends upon the mechanical devices which are going to be implanted and that these devices can fail or malfunction, and may need to be repaired or replaced and there are no guarantees as to the longevity of this device or its part and that it or its parts could fail prematurely. Finally, the patient was asked to follow completely and fully with all advice and recommended treatments, and that recovery and ultimate outcome are affected by their compliance with recommended treatment. Surgical technique: Patient was marked and consented in the pre-operative area. The patient was brought to the operating room and placed on the operating table in a supine position. Prior to positioning, a timeout procedure was performed between the surgeon, the anesthesiologist, and the nursing staff where the patient and the operative side were identified and confirmed. After adequate general anesthetic was obtained, the right lower extremity was prepped and draped in the usual sterile fashion. A weight based dose of Cefazolin were administered within 1 hour prior to incision. The robot was preregistered and calibrated before the incision. The extremity was exsanguinated with an esmarch badge and tourniquet inflated to 250mmHg. A midline incision was made. A median parapatellar arthrotomy was made. The patella was subluxed laterally. A medial release was performed to expose the medial tibia. His femoral and tibial pins were placed through an intra incisional manner for both cases. Every effort was made to ensure that the distalmost aspect of the pin was hung in the second cortex. The arrays were then tightened several times to ensure that it was fixed for the remainder of the case. Both femoral and tibial checkpoints were then placed. We then went through the registration process of the bone. We then assessed the knee deformity and attempted to correct it. We also used the robot to aid in judging laxity in both extension and flexion. Final based on laxity and alignment we changed the preoperative assessment to obtain proper proper implant positioning and to correct deformity. Attention was then placed to the tibia. We made a tibial cut using the robot ensuring that both the MCL and the patella tendon were protected with retractors. We then went to the femur and made the posterior cut followed by the anterior cut and the anterior chamfer. The bone was then removed and we made a distal femur cut and a posterior chamfer cut. We verified all cuts. A trial reduction was performed with a size 4 femoral component and a size 4 keeled tibial component. The patella tracked centrally, and no lateral retinacular release was necessary. The trial implants were removed. The arrays, pins, and checkpoints were all removed. We performed a verification that all pins were removed. The cut bone surfaces were lavaged. A size 4 right femoral component, a size 4 keeled tibial component were impacted into position. The knee was felt to be well balanced in the sagittal and coronal plane. The final 4x11 mm cruciate-substituting articular insert was impacted into the tibial tray. The knee was brought out to full extension, flexed up to 120 degrees. It was stable to varus and valgus stress and appropriately balanced in flexion and extension. The wounds were copiously irrigated following deflation of tourniquet. The medial retinaculum was reapproximated with #1 vicryl and quill. The subcutaneous tissues were closed with 0 and 2-0 interrupted Vicryl. The skin was closed with 3-0 Monofilament V loc suture. A sterile dressing was applied. The patient was transferred to a bed and brought to recovery in stable condition. The patient tolerated the procedure well. There were no intraoperative complications. Sponge and needle counts were correct times 2. As the attending surgeon, I attest I was present and performed the entire operation. Grafts/Implants Size 4 CR Femur Size 4 Tibia 11mm poly CS Anesthesia spinal Implants Implants comments: germaine Pathology / specimen None Pathology comment: none Estimated Blood Loss 150 Condition Stable Disposition same day Surgeon Willem De MD Surgical Staff Operation Date: 02/28/25 11:00 Case Staff Anesthesiologist: Tj Landa RNcustodial services manager: Bri Garrison
--- NOTE | 2025-02-28 12:50 | SUR.PHASEII ---
informed Dr. Landa of pt c/o of calf pain. pain medication given by Dr. Landa.
[2025-02-28] MEDS: oxyCODONE HCL 5 MG IR TAB PO (13:10)
--- NOTE | 2025-02-28 13:13 | SUR.PHASEII ---
pt able to tolerate oral fluids without difficulty swallowing or nausea/vomiting.
[2025-02-28] MEDS: MORPHINE SULF INJ 4 MG/ML VIAL 2 MG IVP ×2 (13:22→13:48)
--- NOTE | 2025-02-28 14:34 | SUR.PHASEII ---
1348: Assumed care. Pt resting with no further c/o pain. Resp even, unlabored. VS stable. Dressing to right knee dry, clean, intact. Son at bedside. 1420: Report to Kailash COLBERT.
--- NOTE | 2025-02-28 15:50 | SUR.PHASEII ---
pt awake and alert, breathing unlabored on room air. v/s stable. pt dressing to right lower extremity cdi. pt cleared by physical therapist Sahil. pt able to ambulate in pacu hallway using walker. d/c instructions given with daughter in room, all questions answered. pt d/c via wheelchair with all belongings.
--- NOTE | 2025-03-05 13:18 | PD.ANESPROG ---
Documentation for date of: 03/05/25 POST ANESTHESIA NOTE: Patient had unsuccessful spinal attempts then converted to GETA and R adductor block for R TKA on 02/28/25. I just called and spoke with her on the phone and she denied any problems from anesthesia and said Everything seems to be going well and was thankful. Tj Landa MD Anesthesia Progress Note Progress Note Most recent Vital Signs: Last Vital Signs Temp 97.1 F 02/28/25 15:00 Pulse 81 02/28/25 15:00 Resp 17 02/28/25 15:00 BP 115/66 02/28/25 15:00 Pulse Ox 94 L 02/28/25 15:00 O2 Flow Rate 3 02/28/25 14:15
== END 2025-02-28 15:50 | disposition home or self-care (01) ==
PROVIDERS: Anesthesiology; PCP Family Medicine; Referring Provider Orthopaedic Surgery Adult Reconstructive Orthopaedic Surgery; Visit Provider Orthopaedic Surgery Adult Reconstructive Orthopaedic Surgery
PROC: (CPT 20985; principal; 2025-02-28 11:00)
DX: M17.11 Unilateral primary osteoarthritis, right knee (principal); M25.761 Osteophyte, right knee; Z01.810 Encounter for preprocedural cardiovascular examination; I10 Essential (primary) hypertension; Z79.899 Other long term (current) drug therapy
CPT/HCPCS: 20985; 27447; 73560; 93005; 97162; A4217; A4649; C1713; C1776; J0131; J0690; J2250; J2270; J2371; J2405; J2598; J2704; J2710; J2795; J3010; J3490; A4648; A9270; J1596; J1805; J7999

== ENCOUNTER 2025-03-15 09:58 | Outpatient (AMB) | payer MEDICARE, MEDICAID, SELFPAY ==
--- NOTE | 2025-03-15 10:41 | PD.ORTHCLVIS ---
Vital signs 03/15/25 10:42 Height 1.63 m Height Method Stated Weight 97.324 kg Weight Measurement Method Standing Scale BMI 36.6 BP 124/70 Blood Pressure Source Automatic Cuff Blood Pressure Location Left Upper Arm Position Sitting Respiration 18 Pulse 76 Pulse Source Monitor Temp 97.8 F Temp Source Temporal Artery Scan Pulse Oximetry (%) 91 L Oxygen Delivery Method Room Air Med/Allergies Allergies & Medications Allergies hydrocodone (From Vicodin) Allergy (Verified 03/15/25 10:42) SEVERE ITCHING, BLURRY VISION Medication Reconciliation lisinopril 10 mg tablet 10 mg PO QDAY #0 tabs 05/06/15 [History Confirmed 03/15/25] amlodipine 2.5 mg tablet 2.5 mg PO QDAY 02/22/25 [History Confirmed 03/15/25] atorvastatin 10 mg tablet 10 mg PO DAILY 02/22/25 [History Confirmed 03/15/25] ibuprofen 800 mg tablet 800 mg PO Q8H PRN pain 02/22/25 [History Confirmed 03/15/25] semaglutide 3 mg tablet (Rybelsus) 3 mg PO QDAY 02/22/25 [History Confirmed 03/15/25] trazodone 150 mg tablet 150 mg PO HS 02/22/25 [History Confirmed 03/15/25] venlafaxine 150 mg capsule,extended release 24 hr (Effexor XR) 150 mg PO QAM 02/22/25 [History Confirmed 03/15/25] acetaminophen 500 mg tablet (Acetaminophen Extra Strength) 1,000 mg (2 x 500 mg) PO Q6H PRN pain #90 tabs 02/28/25 [Rx Confirmed 03/15/25] aspirin 81 mg tablet,delayed release 81 mg PO BID #60 tabs 02/28/25 [Rx Confirmed 03/15/25] doxycycline hyclate 100 mg tablet 100 mg PO BID #14 tabs 02/28/25 [Rx Confirmed 03/15/25] gabapentin 300 mg capsule 300 mg PO .qhs #30 caps 02/28/25 [Rx Confirmed 03/15/25] sennosides 8.6 mg-docusate sodium 50 mg tablet (Senna-S) 1 tab-cap PO QDAY #30 tabs 02/28/25 [Rx Confirmed 03/15/25] oxycodone 5 mg tablet 5 mg PO Q6H PRN pain #28 tabs 03/09/25 [Rx Confirmed 03/15/25] Assessment and Plan Problem List (1) Pain in right knee: Status: Acute (2) Arthritis of right knee: Status: Acute Advanced Care Planning Discussion Advance care planning discussed with:: patient Office Procedures GNS Level of Care Nursing/Assessment Patient Status: Established Patient Nursing Assessment/Reassesment: Medication Reconciliation, Update PMH in EMR and Vital Signs Coordination of Care: Complex Care and Chronic Disease 1-5, Education Complex Pt/Fam, Consent,records obtained, informed consent, Results/Orders obtained and Staff clarify orders Established Patient Charge Established Patient Point Assignment: 95 Established Patient Point Charge: EP Level 3 (80-115) MA Intake Visit Data Collection New Patient or Established: Established Patient (seen at 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 ASYMPTOMATIC) Hypercholesterolemia: Yes Congestive Heart Failure: No Hypertension: Yes (TAKES MED) Respiratory Problems Chronic Obstructive Pulmonary Disease (COPD): No Smoking: No Smoking Cessation Counseling: No Smoking Exposure: No Stomache/Intestinal Problems Hepatitis: No Colorectal Cancer: No Genital/Urinary Problems Renal Disease: No Reproductive Problems Breast Cancer: No Endometriosis: No Pelvic Inflammatory Disease: No Previous Pregnancies: Yes (X4) Uterine Prolapse: No Musculoskeletal Problems Bone Cancer: No Arthritis: Yes Osteoporosis: Yes Carpal Tunnel Syndrome: Yes (MEJIA) Fractures: Yes ( A CHILD-LEFT ARM) Head,Eye,Nose,Throat Problems Cataracts: Yes Endocrine Problems Diabetes Mellitus Type 1: No Diabetes Mellitus Type 2: No Blood Problems Anemia: Yes Psychologic Problems Depression: Yes Anxiety: Yes Other Problems Hospitalization: No Shingles: No Blood Transfusions: No Blood Transfusion Reaction: No Anesthesia Reactions: No Organ Transplant: No Chemotherapy: No Radiation Therapy: No Hyperbaric Therapy: No MRSA: No VRSA: No Vancomycin-Resistant Enterococci: No Chicken Pox: Yes Measles: Yes Cancer: No Cervical Cancer: No Lung Cancer: No Ovarian Cancer: No Surgical History Hysterectomy: Yes (MEJIA MOISE) Subjective Visit Visit for: follow up visit, post op #1 and knee Immunization / Flu Flu Vaccine in the Last 12 Months: Yes Flu Vaccine Exclusion Criteria: Already Received History of Present Illness Chief complaint: 2 WK TKA FU Date of injury / onset of symptoms: 5 YEARS AGO Personal History Occupation: RETIRED Red flag PMH: none BMI Counceling provided: Yes Pain Pain level (0-10): 7 Pain duration: ON AND OFF Pain location: anterior Pain quality: aching Ambulatory data Ambulatory device: walker Treatments Number of previous injections: 10 Improvement with previous injections: Yes Number of Physical Therapy sessions: 0 Improvement with PT: No Improvement with NSAIDS: yes Review of Systems Review of Systems: All systems negative unless otherwise noted in HPI.
[2025-03-15 10:42] VITALS: BP 124/70; PULSE 76; RESP 18; TEMP 36.6; O2SAT 91; BMI 36.6
== END 2025-03-15 10:48 | disposition home or self-care (01) ==
LOC: HODSRG 09:58
PROVIDERS: PCP Physician Assistant; Referring Provider Physician Assistant; Supervising Provider Orthopaedic Surgery Adult Reconstructive Orthopaedic Surgery; Visit Provider Orthopaedic Surgery Adult Reconstructive Orthopaedic Surgery
DX: M17.11 Unilateral primary osteoarthritis, right knee (principal); M25.561 Pain in right knee
CPT/HCPCS: 99213; G0463

== ENCOUNTER 2025-04-12 08:54 | Outpatient (AMB) | payer MEDICARE, MEDICAID, SELFPAY ==
--- NOTE | 2025-04-12 09:04 | PD.ORTHCLVIS ---
Vital signs 04/12/25 09:09 Height 1.63 m Height Method Measured Weight 89.811 kg Weight Measurement Method Standing Scale BMI 33.7 BP 145/84 H Blood Pressure Source Automatic Cuff Blood Pressure Location Left Upper Arm Position Sitting Respiration 19 Pulse 84 Pulse Source Monitor Temp 97.9 F Temp Source Temporal Artery Scan Pulse Oximetry (%) 94 L Oxygen Delivery Method Room Air Med/Allergies Allergies & Medications Allergies hydrocodone (From Vicodin) Allergy (Verified 04/12/25 09:09) SEVERE ITCHING, BLURRY VISION Medication Reconciliation lisinopril 10 mg tablet 10 mg PO QDAY #0 tabs 05/06/15 [History Confirmed 04/12/25] amlodipine 2.5 mg tablet 2.5 mg PO QDAY 02/22/25 [History Confirmed 04/12/25] atorvastatin 10 mg tablet 10 mg PO DAILY 02/22/25 [History Confirmed 04/12/25] ibuprofen 800 mg tablet 800 mg PO Q8H PRN pain 02/22/25 [History Confirmed 04/12/25] semaglutide 3 mg tablet (Rybelsus) 3 mg PO QDAY 02/22/25 [History Confirmed 04/12/25] trazodone 150 mg tablet 150 mg PO HS 02/22/25 [History Confirmed 04/12/25] venlafaxine 150 mg capsule,extended release 24 hr (Effexor XR) 150 mg PO QAM 02/22/25 [History Confirmed 04/12/25] aspirin 81 mg tablet,delayed release 81 mg PO BID #60 tabs 02/28/25 [Rx Confirmed 04/12/25] doxycycline hyclate 100 mg tablet 100 mg PO BID #14 tabs 02/28/25 [Rx Confirmed 04/12/25] sennosides 8.6 mg-docusate sodium 50 mg tablet (Senna-S) 1 tab-cap PO QDAY #30 tabs 02/28/25 [Rx Confirmed 04/12/25] acetaminophen 500 mg tablet (Acetaminophen Extra Strength) 1,000 mg (2 x 500 mg) PO Q6H PRN pain #90 tabs 04/03/25 [Rx Confirmed 04/12/25] gabapentin 300 mg capsule 300 mg PO .qhs #30 caps 04/12/25 [Rx] Exam Exam Breathing is nonlabored. Patient has a normal mood and affect. Bilateral extremities were evaluated and demonstrates sensation intact to light touch. Palpable pedal pulses are present. No significant edema is present. Bilateral hips were examined. The patient has no pain with log roll of the hips. Internal rotation to 30 degrees and external rotation to 30 degrees is painless. Negative FADIR. Left knee was examined today. Left knee incision is clean dry and intact The right knee was also examined. The right knee is in varus alignment. Range of motion from 0-115 degrees. Knee is stable to varus and valgus as well as AP translation with <5mm. Patient has a negative McMurrays. There is no pain with patellofemoral compression and no crepitus noted. The knee is tender to palpation medially. Right knee x-rays demonstrates significant joint space narrowing medially with complete obliteration of the medial joint space Assessment and Plan Problem List (1) Pain in right knee: Status: Acute Plan: Patient is doing well s/p R TKA. We will get xrays today and will see her again in 6 weeks (2) Arthritis of right knee: Status: Acute Advanced Care Planning Discussion Advance care planning discussed with:: patient Office Procedures GNS Level of Care Nursing/Assessment Patient Status: Established Patient Nursing Assessment/Reassesment: Medication Reconciliation, Update PMH in EMR and Vital Signs Coordination of Care: Complex Care and Chronic Disease 1-5, Education Complex Pt/Fam, Consent,records obtained, informed consent, Results/Orders obtained and Staff clarify orders Established Patient Charge Established Patient Point Assignment: 95 Established Patient Point Charge: EP Level 3 (80-115) MA Intake Visit Data Collection New Patient or Established: Established Patient (seen at [facility] within 3 years) Reason for Visit:: RT TKA 4 WEEK F/U Seen by Clinical Staff ONLY (RN/MA): No Wood 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 ASYMPTOMATIC) Hypercholesterolemia: Yes Congestive Heart Failure: No Hypertension: Yes (TAKES MED) Respiratory Problems Chronic Obstructive Pulmonary Disease (COPD): No Smoking: No Smoking Cessation Counseling: No Smoking Exposure: No Stomache/Intestinal Problems Hepatitis: No Colorectal Cancer: No Genital/Urinary Problems Renal Disease: No Reproductive Problems Breast Cancer: No Endometriosis: No Pelvic Inflammatory Disease: No Previous Pregnancies: Yes (X4) Uterine Prolapse: No Musculoskeletal Problems Bone Cancer: No Arthritis: Yes Osteoporosis: Yes Carpal Tunnel Syndrome: Yes (MEJIA) Fractures: Yes ( A CHILD-LEFT ARM) Head,Eye,Nose,Throat Problems Cataracts: Yes Endocrine Problems Diabetes Mellitus Type 1: No Diabetes Mellitus Type 2: No Blood Problems Anemia: Yes Psychologic Problems Depression: Yes Anxiety: Yes Other Problems Hospitalization: No Shingles: No Blood Transfusions: No Blood Transfusion Reaction: No Anesthesia Reactions: No Organ Transplant: No Chemotherapy: No Radiation Therapy: No Hyperbaric Therapy: No MRSA: No VRSA: No Vancomycin-Resistant Enterococci: No Chicken Pox: Yes Measles: Yes Cancer: No Cervical Cancer: No Lung Cancer: No Ovarian Cancer: No Surgical History Hysterectomy: Yes (MEJIA MOISE) Subjective Visit Visit for: follow up visit and knee Immunization / Flu Flu Vaccine in the Last 12 Months: Yes Flu Vaccine Exclusion Criteria: Already Received History of Present Illness Chief complaint: 4 WEEK F/U RT TKA Date of injury / onset of symptoms: 5 YEARS AGO Patient is 6 weeks postop R TKA and is doing well Personal History Occupation: RETIRED Red flag PMH: none BMI Counceling provided: Yes Pain Pain level (0-10): 5 Pain duration: ON AND OFF Pain location: anterior Pain quality: aching Ambulatory data Ambulatory device: walker Treatments Number of previous injections: 10 Improvement with previous injections: Yes Number of Physical Therapy sessions: 0 Improvement with PT: No Improvement with NSAIDS: yes Review of Systems Review of Systems: All systems negative unless otherwise noted in HPI.
[2025-04-12 09:09] VITALS: BP 145/84; PULSE 84; RESP 19; TEMP 36.6; O2SAT 94; BMI 33.7
--- NOTE | 2025-04-12 09:34 | XR_ITS ---
EXAMINATION: Bilateral knees single view PA lateral axial right knee 3 views TECHNIQUE: Standing bilateral AP knees single view Right knee standing PA flexion, standing lateral, axial right knee 3 views total 4 views Date and time: April 12, 2025, 0959 hours INDICATIONS: Right knee replacement February 28, 2025 left knee replacement 8 years ago FINDINGS: Moderate osteopenia Bilateral total knee arthroplasties. Satisfactory alignment No fractures. No loosening of the prosthetic components No right patellar dislocation IMPRESSION: Bilateral total knee arthroplasties with satisfactory alignment
== END 2025-04-12 09:38 | disposition home or self-care (01) ==
LOC: HODSRG 08:54
PROVIDERS: PCP Physician Assistant; Referring Provider Physician Assistant; Supervising Provider Orthopaedic Surgery Adult Reconstructive Orthopaedic Surgery; Visit Provider Orthopaedic Surgery Adult Reconstructive Orthopaedic Surgery
DX: Z47.1 Aftercare following joint replacement surgery (principal); Z96.651 Presence of right artificial knee joint; M25.561 Pain in right knee; I10 Essential (primary) hypertension
CPT/HCPCS: 73564; 99213; G0463

== ENCOUNTER 2025-05-02 14:00 | Outpatient (RCR) | payer MEDICARE, MEDICAID, SELFPAY ==
--- NOTE | 2025-04-10 09:51 | PTNOTE_ITS ---
PT OP Initial Eval Patient Information Outpatient Physical Therapy Treatment Date: 04/10/25 Visit Reasons: RT TKA Medical Diagnosis: Right Knee OA Treatment Dx #1: Right Knee Mobility Deficits Treatment Dx #2: Right Knee Weakness Start of Care: 04/10/25 Date of Onset: 02/28/25 Smoking Status Smoking Status: Never smoker Initial Assessment Subjective: Pt is a 65 y/o female s/p right TKA 02/28/25. Pt still has pain 5/10 with activities. Pt has limitation with prolonged standing, walking, chores, self care, cooking, cleaning, stairs, steps, squatting, and performing recreational activities. Objective: Right Knee AROM: -12 deg to 116 deg Right Knee MMTs: grossly 4-/5 Right Hip MMTs: grossly 3+/5 Active SLR: 75 deg SLS: NT Assessment: Pt demonstrate right knee mobility and strength deficits s/p TKA leading to difficulty with ADLs. 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
--- NOTE | 2025-04-17 12:54 | PT.ODAYNRPT ---
PT Outpatient Daily Note OP Daily Note Outpatient Physical Therapy Treatment Date: 04/17/25 Visit Reasons: RT TKA Subjective: Pt's knee is better. Pt is walking longer with less pain. Pt still has stiffness in the knee due to the cold weather Objective: Please see flow chart for list of ther ex performed Assessment: progressing with knee flexion AAROM with less pain reported. Post ice helped with pain and soreness Plan: Continue with PT Length of Time (minutes) of Treatment: 30 Minutes Procedure Charges Therapeutic Exercise 30 minutes: Yes
--- NOTE | 2025-05-02 15:46 | PT.ODAYNRPT ---
PT Outpatient Daily Note OP Daily Note Outpatient Physical Therapy Treatment Date: 05/02/25 Visit Reasons: RT TKA Subjective: Pt's knee is better. Pt has stopped using her walking within the house. Objective: Please see flow chart for list of ther ex performed Assessment: progress patient to more closed chain exercises with minimal pain. Pt demonstrate safe gait without walker and instructed to use cane moving forward. Pt gave verbal consent and understanding Plan: Continue with PT Length of Time (minutes) of Treatment: 30 Minutes Procedure Charges Therapeutic Exercise 30 minutes: Yes
== END 2025-05-02 23:59 | disposition home or self-care (01) ==
LOC: CPTX 14:00
PROVIDERS: PCP Orthopaedic Surgery Adult Reconstructive Orthopaedic Surgery; Referring Provider Orthopaedic Surgery Adult Reconstructive Orthopaedic Surgery; Visit Provider Orthopaedic Surgery Adult Reconstructive Orthopaedic Surgery
DX: Z47.1 Aftercare following joint replacement surgery (principal); Z96.651 Presence of right artificial knee joint; M25.561 Pain in right knee; R26.2 Difficulty in walking, not elsewhere classified
CPT/HCPCS: 97110; 97162